=== PATIENT | male | born 1965 | race Caucasian/White ===

== ENCOUNTER 2017-06-25 11:57 | Outpatient (CLI) | payer OTHER ==
--- NOTE | 2017-06-25 12:36 | RAD ---
THREE VIEWS LUMBOSACRAL SPINE: Comparison: None. History: Low back pain. FINDINGS: Three views of the lumbosacral spine shows normal height and alignment of the vertebral bodies witho ut fracture or subluxation. There are moderate osteophytes throughout the lumbar spine. Moderate pos terior facet arthrosis is seen. IMPRESSION: Moderate degenerative changes of the lumbar spine without acute osseous abnormality. POS: [facility]
--- NOTE | 2017-06-25 12:46 | RAD ---
TWO VIEWS RIGHT HIP: Comparison: None. History: Right hip pain. Disability evaluation. FINDINGS: Two views of the right hip shows severe joint space narrowing and osteophyte formation of the right hip. There is slight loss of the superior aspect of the femoral head. This could be secondary to vickey scular necrosis. IMPRESSION: Severe right hip osteoarthritis. POS: [facility]
== END 2017-06-25 11:58 | disposition home or self-care (01) ==
LOC: NAV RAD 11:57
PROVIDERS: ATTEND Family Medicine
DX: Z02.71 Encounter for disability determination (principal); M16.11 Unilateral primary osteoarthritis, right hip
CPT/HCPCS: 72100